=== PATIENT | male | born 1980 | race Caucasian/White ===

== ENCOUNTER 2020-06-13 06:11 | Emergency (ER) | payer SELFPAY ==
[~2020-06-13] VITALS: Ht 172.7 cm; Wt 91.0 kg
[2020-06-13 07:35] VITALS: BP 145/80
== END 2020-06-13 07:59 | disposition home or self-care (01) ==
LOC: ER 06:11
DX: J45.901 Unspecified asthma with (acute) exacerbation (principal)
CPT/HCPCS: 93005; 99283

== ENCOUNTER 2021-10-14 14:53 | Emergency (ER) | payer SELFPAY ==
[~2021-10-14] VITALS: Ht 167.6 cm; Wt 73.0 kg
[2021-10-14] MEDS ORDERED: LORAZEPAM 2MG/ML CPJ IM STA (15:47)
[2021-10-14] MEDS ORDERED: DIPHENHYDRAMINE 50MG/ML VIAL IM STA (15:47)
[2021-10-14] MEDS ORDERED: HALOPERIDOL LACTATE 5MG/ML VIAL IM STA (15:47)
[2021-10-14 17:15] LABS: BASOPHILS % 0.4 % (0.0-2.0); EOSINOPHILS % 0.5 % (0.0-5.0); HEMATOCRIT. 44.7 % (42.0-52.0); HEMOGLOBIN. 15.5 g/dL (14.0-18.0); LYMPHOCYTES % 11.8 % (20.0-50.0); MEAN CORPUSCULAR HEMOGLOBIN 30.6 pg (28.0-32.0); MEAN CORPUSCULAR VOLUME 88.2 fL (80.0-94.0); MEAN PLATELET VOLUME 7.4 fl (7.4-10.4); MONOCYTES % 4.7 % (2.0-8.0); NEUTROPHILS % 82.6 % (40.0-76.0); PLATELET 451 x1000/uL (130-400); RED BLOOD CELL COUNT 5.07 mill/uL (4.7-6.1); RED CELL DISTRIBUTION WIDTH 13.8 % (11.6-14.6)
[2021-10-14 17:21] LABS: CHLORIDE 110 mEq/L (98-107)
[2021-10-14 17:31] LABS: CREATINE KINASE 377 IU/L (39-308)
[2021-10-14 17:51] LABS: ETHANOL BLOOD 314 mg/dL
[2021-10-14 19:13] LABS: *BARBITURATES SCREEN URINE NEGATIVE (NEGATIVE)
[2021-10-14 19:14] LABS: *BENZODIAZEPINES SCREEN URINE NEGATIVE (NEGATIVE); *COCAINE SCREEN URINE NEGATIVE (NEGATIVE); METHADONE URINE SCREEN NEGATIVE (NEGATIVE); OPIATES URINE SCREEN NEGATIVE (NEGATIVE); PHENCYCLIDINE URINE SCREEN NEGATIVE (NEGATIVE)
[2021-10-14 19:15] LABS: CANNABINOID URINE SCREEN PRESUMTIVE POSITIVE (NEGATIVE)
[2021-10-14 19:16] LABS: *AMPHETAMINES SCREEN URINE PRESUMTIVE POSITIVE (NEGATIVE)
[2021-10-14] MEDS ORDERED: SODIUM CHLORIDE 0.9% 1,000 ML IV ONE (23:00)
[2021-10-15 02:00] VITALS: BP 115/78
== END 2021-10-15 05:07 | disposition home or self-care (01) ==
LOC: ER 14:53
DX: R45.1 Restlessness and agitation (principal); F10.129 Alcohol abuse with intoxication, unspecified; Y90.8 Blood alcohol level of 240 mg/100 ml or more; R74.01 Elevation of levels of liver transaminase levels; N17.9 Acute kidney failure, unspecified; J45.909 Unspecified asthma, uncomplicated
CPT/HCPCS: 36415; 80053; 80305; 80320; 82550; 83690; 85025; 93005; 96372; 99291; J1200; J1630; J2060; G0480

== ENCOUNTER 2021-11-22 01:54 | Emergency (ER) | payer SELFPAY ==
[~2021-11-22] VITALS: Ht 170.2 cm; Wt 91.0 kg
[2021-11-22] MEDS ORDERED: IBUPROFEN 600MG TABLET PO STA (02:43)
[2021-11-22] MEDS ORDERED: IBUP-2028 MT (03:58)
[2021-11-22 05:05] VITALS: BP 127/82
[2021-11-22] MEDS ORDERED: NAPR-1176 MT (23:28)
== END 2021-11-22 05:20 | disposition home or self-care (01) ==
LOC: EDBD → ER 02:12
DX: M25.552 Pain in left hip (principal); R45.851 Suicidal ideations; R44.0 Auditory hallucinations; F10.229 Alcohol dependence with intoxication, unspecified; J45.909 Unspecified asthma, uncomplicated; Y90.0 Blood alcohol level of less than 20 mg/100 ml
CPT/HCPCS: 73521; 99283

== ENCOUNTER 2021-11-22 22:28 | Emergency (ER) | payer SELFPAY ==
[~2021-11-22] VITALS: Ht 175.3 cm; Wt 73.0 kg
[~2021-11-22 22:28] MED LIST: IBUP-2028 MT
[2021-11-22 22:39] VITALS: BP 158/98
[2021-11-22] MEDS ORDERED: ACETAMINOPHEN 325MG TABLET PO ONE (22:45)
[2021-11-22] MEDS ORDERED: NAPR-1176 MT (23:28)
== END 2021-11-22 23:50 | disposition home or self-care (01) ==
LOC: ER 22:28
DX: M25.552 Pain in left hip (principal); V03.09XA Pedestrian with other conveyance injured in collision with car, pick-up truck or van in nontraffic accident, initial encounter; Y93.89 Activity, other specified; Y92.89 Other specified places as the place of occurrence of the external cause; Y99.8 Other external cause status; J45.909 Unspecified asthma, uncomplicated; F10.229 Alcohol dependence with intoxication, unspecified; Y90.0 Blood alcohol level of less than 20 mg/100 ml
CPT/HCPCS: 73502; 99283